=== PATIENT | male | born 1990 | race Caucasian/White ===

== ENCOUNTER 2021-10-22 11:01 | Emergency (ER) | payer OTHER ==
[~2021-10-22] VITALS: Ht 180.3 cm; Wt 77.1 kg
== END 2021-10-22 12:18 | disposition home or self-care (01) ==
LOC: ED 11:01
DX: K92.2 Gastrointestinal hemorrhage, unspecified (principal)
CPT/HCPCS: 36415; 80053; 85025; 99284